=== PATIENT | male | born 1945 | race Caucasian/White ===

== ENCOUNTER → 2017-12-09 | Outpatient (CLI) | payer OTHER ==
[~2017-12-09] VITALS: Ht 182.9 cm; Wt 65.8 kg
[~2017-12-09] MED LIST: ALTACE5 MG PO; AMILORIDE HCL-1 EACH PO; ATENOLOL 25 MG25 M1 PO; BYDUREON P2 MG/0.65; CARAFATE 1 GM TA1 G1 PO; CARDIZEM CD 18180 M3 PO; GLUCOPHAGE1000 MG PO; KEFLEX500 MG PO; LANTUS100 UNIT/M SUBQ; LIPITOR 20 MG T20 M1 PO; NORCO 5-325 TA1 EACH PO; NOVOLOG100 UNIT/1 SUBQ; PROTONIX40 M1 PO; XARELTO20 MG PO; ZOCOR 20 MG TAB20 M1 PO
--- NOTE | ~2017-12-09 | EKG ---
[place] [address] [address] [facility] [place] [address] ELECTROCARDIOGRAM REPORT Name: NAI CLAY [facility]: [id number] Admission: 12/09/17 Attend Phys: Ashok Adkins MD, Discharge: Date of : 41 Report #: [id number] THIS REPORT FOR: //name// [facility] Test Date: 2017-12-09 Test Time: 07:50:07 Pat Name: NAI CLAY Department: Room: Gender: M Aromatherapist: GR : 1945 Requested By: Ashok Adkins Order Number: [id number] MD: Jaya Ruelas Measurements Intervals [place] Rate: 82 P: NV: QRS: 68 QRSD: 90 T: 45 QT: 369 QTc: 431 Interpretive Statements Atrial fibrillation Borderline low voltage, extremity leads Compared to ECG 11/03/2017 12:40:52 No significant changes Electronically Signed On 12-09-2017 7:56:10 CDT by Jaya Ruelas [email or web address] <ELECTRONICALLY SIGNED> By: Jaya Ruelas MD, [facility] 12/09/17 0756 0750 0750 Jaya Ruelas MD, FACC /EPI
--- NOTE | ~2017-12-09 | CATHLAB ---
[facility] [address] [place] [address] INVASIVE PROCEDURE REPORT Name: NAI CLAY Room #: REG [facility] [id number] Admission: 12/09/17 Attend Phys: Ashok Akdins, Discharge: Date of : 41 Date of Service: 12/10/17 0927 Report #: [id number] THIS REPORT FOR: //name// APPROVED REPORT Study performed: 12/09/2017 08:30:34 Patient Details Patient Status: Out-Patient Room #: The patient is a 71 year-old male Event Personnel Ashok Adkins Networking Administrator, Sima Hurd RN dredge or barge shore hand Performed Art Access - R femoral artery* Lane Access - R femoral vein 49671 Initial Mod Sed Same Phys/QHP Gr5y 739530 38599 Mod Sed Same Phys/QHP Ea 275780 Right and Left Heart Cath Lt Vent/Cors/Grafts 1838777 RLLVCORCAB Aortogram Abdominal Peripheral Angio 603646 Renal Bilateral Peripheral Angiography 8280941 CVRENALBIL Hemostasis w/ Mynx Indication Positive stress test Procedure Narrative The patient was brought electively to the Cardiac Catheterization Laboratory and was prepped and draped in a sterile manner. The Right Groin^ was infiltrated with 1% Lidocaine subcutaneous anesthesia. A Right Heart Catheterization was performed with a 7 Fr. Liberty-Yulia catheter and pressure were recorded. Cardiac outputs were obtained by the Thermal Dilution method. A PINNACLE 6FR Sheath #[id number] sheath was inserted into the RFA^. Coronary angiography was performed using coronary diagnostic catheters. The right coronary system was accessed and visualized with a JR 4 catheter. The left coronary system was accessed and visualized with a JL 4 catheter. The left ventricle was accessed and visualized with a Pigtail catheter. Left ventriculogram was performed in CAMACHO projection. An aortogram of the abdominal aorta was performed. Pre-demployment femoral angiogram was performed . Closure device was deployed with a 6 Fr Mynx. The patient tolerated the procedure well and there were no complications associated with the procedure. There was no hematoma. Intraoperative Conscious Sedation Sedation start time: 08:53 Case end Time: [address] [address] INVASIVE PROCEDURE REPORT Name: NAI CLAY Room #: REG Angelica#: [id number] Admission: 12/09/17 Attend Phys: Ashok Adkins, Discharge: Date of : 41 Date of Service: 12/10/17 0927 Report #: [id number] 09:25 Fluoro Time: 4.50 minutes Dose: DAP 4997.80 cGycm2 568 mGy Contrast Type and Amount: Omnipaque 120 ml Hemodynamics The right atrial mean pressure is 8 mmHg. The right ventricular pressure is 36/4 mmHg. The pulmonary artery pressure is 34/14 mmHg with a mean of 23 mmHg. The mean pulmonary capillary wedge pressure is 17 mmHg. The aortic pressure is 127/60 mmHg with a mean of 77 mmHg. The left ventricular pressure is 128/4 mmHg with a mean of mmHg. The left ventricular end diastolic pressure is 20 mmHg. The cardiac output using thermo method is 3.15 L/min. The cardiac index using thermo method is 1.70 L/min/m2. Conclusion #1 normal left ventricular size and systolic function EF 50-55% #2 abdominal aorta is mildly ectatic. There is no aneurysm there is a moderate narrowing in the infrarenal aorta not flow-limiting renal arteries are patent #3 left main and moderately diseased giving rise total no left coronary system LAD circumflex proximally occluded #4 CROUCH to LAD is intact CROUCH graft widely patent moderate disease in the LAD is extensive the apex with some faint collateral filling to the PDA mid LAD has an eccentric 70% lesion but the entire vessel is moderately diseased would treat this medically #5 lac courte oreilles right coronary artery occluded #6 SVG to diagonal and OM system is a new with mild disease relatively small distribution of the OM and diagonal branch also moderately diseased #7 SVG to distal right scalene disease PDA and SHIRA and there is a brisk collateral branch off of the posterior lateral branch that fills a moderate amount of the circumflex OM system briskly #8 selective injection bilateral single renal arteries mildly diseased ostial left and right #9 successful right heart catheterization hemodynamics described above Recommendations and plan: Continued aggressive risk factor modification. There is no clear target for intervention. Aggressive medical therapy <ELECTRONICALLY SIGNED> By: Ashok Adkins MD, FACC 12/10/17926 6 6 Ashok Adkins MD, FACC /INF
[2017-12-09 07:21] VITALS: BP 122/89
[2017-12-09 07:26] LABS: HEMOGLOBIN 14.3 gm/dL (14.0-18.0); MCH 32.2 pg (26.0-34.0); MCV 94.6 fL (80.0-100.0); RBC 4.44 mil/uL (4.50-6.00); RDW 13.1 % (10.5-14.5); WBC 7.6 thou/uL (4.0-11.0)
[2017-12-09 07:36] LABS: CALCIUM 9.3 mg/dL (8.5-10.1); CREATININE 1.2 mg/dL (0.7-1.3); POTASSIUM 3.5 mmol/L (3.5-5.1)
== END | disposition home or self-care (01) ==
LOC: CATH 06:43
PROVIDERS: Internal Medicine Cardiovascular Disease
DX: I25.10 Atherosclerotic heart disease of native coronary artery without angina pectoris (principal); I25.82 Chronic total occlusion of coronary artery; I77.811 Abdominal aortic ectasia; I70.1 Atherosclerosis of renal artery; I10 Essential (primary) hypertension; E78.5 Hyperlipidemia, unspecified; I25.2 Old myocardial infarction; I48.91 Unspecified atrial fibrillation; E11.9 Type 2 diabetes mellitus without complications; Z95.5 Presence of coronary angioplasty implant and graft; Z95.1 Presence of aortocoronary bypass graft; Z79.4 Long term (current) use of insulin; Z88.0 Allergy status to penicillin; Z88.2 Allergy status to sulfonamides; Z88.8 Allergy status to other drugs, medicaments and biological substances; Z79.899 Other long term (current) drug therapy; Z98.890 Other specified postprocedural states

== ENCOUNTER → 2019-10-18 | Outpatient (CLI) | payer OTHER | LOC: SJCVCIMAG 12:20 | DX: I08.3 Combined rheumatic disorders of mitral, aortic and tricuspid valves (principal); I25.10 Atherosclerotic heart disease of native coronary artery without angina pectoris; I48.92 Unspecified atrial flutter; E11.9 Type 2 diabetes mellitus without complications; I10 Essential (primary) hypertension ==

== ENCOUNTER → 2020-05-24 | Outpatient (CLI) | payer OTHER | LOC: SJCVC 14:01 | PROVIDERS: ATTEND Internal Medicine Cardiovascular Disease | DX: I48.91 Unspecified atrial fibrillation (principal); R94.31 Abnormal electrocardiogram [ECG] [EKG]; I25.810 Atherosclerosis of coronary artery bypass graft(s) without angina pectoris; I10 Essential (primary) hypertension; E78.00 Pure hypercholesterolemia, unspecified; D68.59 Other primary thrombophilia; E11.9 Type 2 diabetes mellitus without complications; Z95.1 Presence of aortocoronary bypass graft ==

== ENCOUNTER 2020-10-12 17:28 | Inpatient (IN) | payer OTHER ==
[2020-10-12] VITALS (7 sets, daily range): BP systolic 67–88; BP diastolic 37–41
[~2020-10-12] VITALS: Ht 182.9 cm; Wt 74.4 kg
[2020-10-12 18:24] LABS: HEMATOCRIT 36.7 % (42.0-52.0); HEMOGLOBIN 12.3 gm/dL (14.0-18.0); MCH 32.9 pg (26.0-34.0); MCHC 33.7 g/dL (28.0-37.0); MCV 97.5 fL (80.0-100.0); RBC 3.76 mil/uL (4.50-6.00); RDW 12.9 % (10.5-14.5)
[2020-10-12 18:29] LABS: URINE BLOOD TRACE (Negative); URINE CLARITY CLEAR; URINE COLOR YELLOW; URINE GLUCOSE-RANDOM* NEGATIVE (Negative); URINE KETONES TRACE (Negative); URINE LEUKOCYTES-REFLEX NEGATIVE (Negative); URINE NITRITE-REFLEX NEGATIVE (Negative); URINE PROTEIN (DIPSTICK) TRACE (Negative); URINE SPECIFIC GRAVITY >= 1.030 (1.005-1.035); URINE UROBILINOGEN 0.2 E.U./dl (0.2-1.0)
[2020-10-12 18:30] LABS: ANION GAP 13 mmol/L (7-16); BUN 64 mg/dL (7-18); CALCIUM 8.2 mg/dL (8.5-10.1); CHLORIDE 96 mmol/L (98-107); CO2 22 mmol/L (21-32); CREATININE 3.5 mg/dL (0.7-1.3); GLUCOSE 263 mg/dL (74-106); POTASSIUM 4.4 mmol/L (3.5-5.1); SODIUM 131 mmol/L (136-145)
[2020-10-12 18:32] LABS: ICTOTEST (BILI CONFIRMATORY) Negative (Negative); URINE BILIRUBIN NEGATIVE (Negative)
[2020-10-12 18:40] LABS: APTT 30.3 Seconds (24.5-32.8); INR 1.17; PROTIME 12.7 Seconds (9.3-11.4)
[2020-10-12 18:45] LABS: ALBUMIN 3.2 g/dL (3.4-5.0); LIPASE 59 U/L (73-393); SGOT 20 U/L (15-37); SGPT 24 U/L (16-63); TOTAL BILIRUBIN 0.5 mg/dL (0.2-1.0); TOTAL PROTEIN 6.9 g/dL (6.4-8.2); TROPONIN-I <0.06 ng/mL (<0.06)
[2020-10-12 19:12] LABS: ABSOLUTE NEUTROPHILS 8.7 thou/uL (1.4-8.2); LARGE PLATELETS RARE; METAMYELOCYTES 1 %; PLATELET COUNT 200 thou/uL (150-400)
[2020-10-12] MEDS ORDERED: FUROSEMIDE 20 M20 MG PO (20:28)
[2020-10-12] MEDS ORDERED: NAPROSYN500 M1 PO (20:28)
[2020-10-12] MEDS ORDERED: CELEXA20 MG PO (20:29)
[2020-10-12] MEDS ORDERED: HUMALOG100 UNIT/1 SUBQ (20:29)
[2020-10-12] MEDS ORDERED: BASAGLAR K100 UNIT/1 SUBQ (20:39)
[2020-10-12] MEDS ORDERED: MIDAMOR 5MG TABL5 M1 PO (20:39)
[2020-10-12] MEDS ORDERED: NEURONTIN100 MG PO (20:40)
[2020-10-12] MEDS ORDERED: SILDENAFIL CIT100 MG PO (20:41)
[2020-10-12 23:02] LABS: CALCIUM 7.2 mg/dL (8.5-10.1); POTASSIUM 4.2 mmol/L (3.5-5.1)
--- NOTE | 2020-10-12 23:17 | NUR ---
PATIENT ARRIVED FROM ER TO 244 AT APPROX 2220. PATIENT MOVED FROM ER BED TO ICU BED INDEPENDENTLY. PATIENT PLACED ON MONITOR. VSS ON RA AT THIS TIME. PATIENT IS A&OX4 WITH NO COMPLAINTS OF PAIN, NAUSEA, OR VOMITING. Erika LAIRD NP CALLED AND INSRUCTED THIS RN TO DECREASE NS INFUSION TO 80/HR AND TO STOP FLUIDS AFTER CURRENT LITER BAG IS COMPLETE. FLUIDS DECREASED TO 80ML/HR. PATIENT REQUIRED LEVOPHED INFUSION TO BE STARTED AT 2300 WITH PRESSURE OF 67/37. ALL CURRENT CONSULTS HAVE BEEN CALLED AT TIME OF THIS WRITING ROUTINE STATUS PER ORDER. PATIENTS BELONGINGS INCLUDE SWEATSHIRT, SWEATPANTS, BOXERS, SOCKS, AND UNDERWARE. PATIENT ENDORSES THAT ALL OTHE BELONGINGS WERE SENT HOME WITH HIS SPOUSE. WILL CONTINUE POC.
[2020-10-13] VITALS (66 sets, daily range): BP systolic 72–169; BP diastolic 36–109
[2020-10-13 05:11] LABS: HEMATOCRIT 33.4 % (42.0-52.0); HEMOGLOBIN 11.2 gm/dL (14.0-18.0); MCH 32.5 pg (26.0-34.0); MCHC 33.5 g/dL (28.0-37.0); MCV 97.2 fL (80.0-100.0); PLATELET COUNT 155 thou/uL (150-400); RBC 3.43 mil/uL (4.50-6.00); WBC 13.8 thou/uL (4.0-11.0)
[2020-10-13 07:49] LABS: ALBUMIN 2.6 g/dL (3.4-5.0); CALCIUM 7.2 mg/dL (8.5-10.1); CREATININE 2.9 mg/dL (0.7-1.3); POTASSIUM 4.7 mmol/L (3.5-5.1); TOTAL BILIRUBIN 1.1 mg/dL (0.2-1.0); TOTAL PROTEIN 5.6 g/dL (6.4-8.2)
[2020-10-13 09:39] LABS: HEMOGLOBIN 12.2 gm/dL (14.0-18.0)
[2020-10-13 09:51] LABS: ABSOLUTE NEUTROPHILS 11.7 thou/uL (1.4-8.2); METAMYELOCYTES 3 %
[2020-10-13 09:52] LABS: ANISOCYTOSIS SLIGHT; BURR CELLS FEW
[2020-10-13 09:53] LABS: ANION GAP 16 mmol/L (7-16); BUN 63 mg/dL (7-18); CALCIUM 7.4 mg/dL (8.5-10.1); CHLORIDE 100 mmol/L (98-107); CO2 15 mmol/L (21-32); CREATININE 2.8 mg/dL (0.7-1.3); GLUCOSE 337 mg/dL (74-106); POTASSIUM 4.8 mmol/L (3.5-5.1); SODIUM 131 mmol/L (136-145)
[2020-10-13 09:56] LABS: MAGNESIUM 1.2 mg/dL (1.8-2.4); PHOSPHORUS 3.6 mg/dL (2.6-4.7)
--- NOTE | 2020-10-13 11:30 | NUR ---
6FRTL IJ PLACED RT SIDE. PLEASE SEE NI FOR DETAILS
[2020-10-13 18:33] LABS: ALBUMIN 2.6 g/dL (3.4-5.0); CREATININE 2.9 mg/dL (0.7-1.3); PHOSPHORUS 3.7 mg/dL (2.6-4.7)
[2020-10-13 18:37] LABS: POTASSIUM 5.2 mmol/L (3.5-5.1)
[2020-10-13 20:48] LABS: ALBUMIN 2.8 g/dL (3.4-5.0); CALCIUM 7.3 mg/dL (8.5-10.1); MAGNESIUM 1.9 mg/dL (1.8-2.4); PHOSPHORUS 2.7 mg/dL (2.6-4.7)
[2020-10-13 20:50] LABS: POTASSIUM 3.3 mmol/L (3.5-5.1)
[2020-10-13 20:58] LABS: URINE BILIRUBIN NEGATIVE (Negative); URINE BLOOD 1+ (Negative); URINE CLARITY CLEAR; URINE COLOR YELLOW; URINE GLUCOSE-RANDOM* 1+ (Negative); URINE KETONES NEGATIVE (Negative); URINE LEUKOCYTES-REFLEX NEGATIVE (Negative); URINE NITRITE-REFLEX NEGATIVE (Negative); URINE PROTEIN (DIPSTICK) NEGATIVE (Negative); URINE UROBILINOGEN 0.2 E.U./dl (0.2-1.0)
[2020-10-13 21:18] LABS: BACTERIA-REFLEX None Seen /HPF (None Seen); CASTS None Seen /LPF (None Seen); CRYSTALS None Seen /LPF (None Seen); RENAL EPITHELIAL CELLS 0-3 Few /LPF (None Seen); SQUAMOUS 0-3 Few /LPF (0-3); URINE WBC-REFLEX 0-5 Rare /HPF (0-5)
--- NOTE | 2020-10-13 22:48 | NUR ---
Pt called me into room. Thought there was wax or water running down the wall onto the floor in his room, also thought water out in hallway by room. Pt very adamant about this though I showed him nothing was on the floor or lopez.
[2020-10-14] VITALS (34 sets, daily range): BP systolic 93–131; BP diastolic 52–81
--- NOTE | 2020-10-14 00:21 | NUR ---
At 2300 pt became severely aggitated, thought floor was on fire, pulled out RIJ central line. Pt became very angry, verbally aggressive when reality orientation attempted. Bleeding from RIJ site stopped. Erika Mueller NP notified of pt's aggitation and hallucinations. According to charge nurse, Chelsea Lanza RN, pt had hallucinations the night of 10/12, but they were not as frightening or severe. Pt given Haldol 2.5 mg IVP per order, two peripheral sites started per Chelsea Lanza RN. Pt now resting comfortably in bed, alert and oriented x4 after Haldol.
--- NOTE | 2020-10-14 03:29 | NUR ---
Pt intermittently confused, restless, argumentative at times. Non-cooperative at times. Keeps taking monitor wires apart, attempts OOB without assist. Up to BSC with assist x1, less shakey but still unsteady gait. Still having lose stools. Blood glucose well controlled with insulin gtt.
[2020-10-14 04:08] LABS: HEMOGLOBIN 12.2 gm/dL (14.0-18.0)
[2020-10-14 04:10] LABS: HEMATOCRIT 36.1 % (42.0-52.0); MCH 32.2 pg (26.0-34.0); MCHC 33.8 g/dL (28.0-37.0); MCV 95.5 fL (80.0-100.0); PLATELET COUNT 190 thou/uL (150-400); RBC 3.78 mil/uL (4.50-6.00); RDW 13.2 % (10.5-14.5); WBC 18.1 thou/uL (4.0-11.0)
[2020-10-14 04:31] LABS: ALBUMIN 2.7 g/dL (3.4-5.0); CALCIUM 7.5 mg/dL (8.5-10.1); CREATININE 1.8 mg/dL (0.7-1.3); PHOSPHORUS 2.5 mg/dL (2.5-4.9); POTASSIUM 3.3 mmol/L (3.5-5.1)
--- NOTE | 2020-10-14 04:58 | HC ---
[facility] [place] [address] CONSULTATION Name: NAI CLAY NILSON Room #: 244-P ADM IN M.R.#: [id number] Admission: 10/12/20 Attend Phys: Mariam Camejo Discharge: Date of : 41 Report #: [id number] THIS REPORT FOR: cc: Albert Canada,Dequan Moss MD ~ DATE OF SERVICE: 10/13/2020 INFECTIOUS DISEASE CONSULTATION ATTENDING PHYSICIAN: Dr. Camejo. REASON FOR EVALUATION: Septic shock. HISTORY OF PRESENT ILLNESS: Chart reviewed, patient examined. This is a 74-year-old gentleman with very extensive medical history, has diabetes mellitus complicated by vasculopathy, who has had significant deterioration over the course of the last week, although he states in retrospect, illness may have started upwards of a year ago, primarily GI related. Most recently, he had nausea, vomiting, and diarrhea. This had been associated with poor appetite. He does deny significant weight loss, has had some fevers and some mild dyspnea with exertion. He notes he is retired. Initial evaluation noted lactic acid elevated to 2.4. He did have a creatinine of 3.5, glucose of 263 on admission. Albumin was 3.2. CT abdomen and pelvis shows sigmoid diverticulosis without diverticulitis. Absent gallbladder. CRP was elevated to 172. Coronavirus testing was negative. Blood cultures have been collected and are in progress. He was empirically started on therapy with cefepime, Levaquin, vancomycin. He is lucid at this point. ALLERGIES: LISTED TO PENICILLINS AND SULFA. MEDICINES: Currently include vancomycin, atorvastatin, cefepime, insulin glargine, rivaroxaban, norepinephrine, hydrocortisone, vasopressin. PAST MEDICAL HISTORY: Diabetes mellitus diagnosed 25 years ago, has known coronary artery disease with aortocoronary bypass grafting, hypertension, atrial fibrillation, hyperlipidemia. SOCIAL HISTORY: Former smoker. No ethanol. No illicit drug use. FAMILY HISTORY: Noncontributory. REVIEW OF SYSTEMS: Otherwise noted the above. PHYSICAL EXAMINATION: [facility] [address] [place] [address] CONSULTATION Name: NAI CLAY Room #: 244-P [facility] IN M.R.#: [id number] Admission: 10/12/20 Attend Phys: Mariam Casas Yamilkavivian Discharge: Date of : 41 Report #: [id number] GENERAL: Appears somewhat chronically ill. He is generally lucid, nlfm-ol-lzkmivxg distress. VITAL SIGNS: T-max 99.9 and more recently 98.2, blood pressure 74/36, saturation 98% on room air. HEENT: Normocephalic. Extraocular muscles intact. NECK: Supple. LUNGS: Diminished breath sounds. HEART: ____. I do not appreciate murmur. ABDOMEN: Soft, nontender, nondistended. EXTREMITIES: No cyanosis. GENITOURINARY AND RECTAL: Deferred. LABORATORY DATA: Lactic acid now at 2.0. CBC: White count of 13.8, H and H 11.2 and 33.4, platelets of 155. Coronavirus testing was negative. Sed rate of 17. CRP of ____. Electrolytes: Sodium 132, potassium 4.2, chloride 100, bicarbonate is 18, anion gap of 14, BUN and creatinine [address] abdomen and pelvis as described above. Chest x-ray, no acute process. Urinalysis was otherwise unremarkable. ASSESSMENT AND PLAN: Septic shock, presumably a gastrointestinal source. Other evaluation has been otherwise unrevealing thus far. We will send stool studies. CT, there was no evidence of diverticulitis or colitis. Await blood culture results. I would continue broad-spectrum antimicrobial therapy at this point. Seemingly, this has been going on a number of months to a year, likely has some underlying issue, perhaps noninfectious with more recent deterioration, likely is infectious. He remains quite tenuous at this point. We will continue to monitor expectantly, do additional testing as dictated by the clinical course. <ELECTRONICALLY SIGNED> By: Dequan Castrejon MD 10/14/20 0458 0644 0738 Dequan Castrejon MD /nt
[2020-10-14 05:36] LABS: GLYCOHEMOGLOBIN (HGB A1C) 7.8 % (4.8-5.6)
--- NOTE | 2020-10-14 08:06 | NUR ---
ASSUMED CARE AT 0700. UPON ASSESSMENT IT IS NOTED BY RN THAT PT IS STILL EXPERIENCING VISUAL HALLICUNATIONS. PT STATES HE IS AT HOME AND IS WATCHING ALL THE COWS ON THIS HILL. RN ATTEMPT TO REORIENT PT IS UNSUCCESSFUL AT THIS TIME. PT CONTINUES TO PULL AT LINES AND CORDS. PT WAS ABLE TO TELL ME HIS 'S NAME, PAST OCCUAPATION AND GAVE THE NAME OF A GRANDCHILD WHO COLORED A PAPER IN HIS ROOM. HE THEN PROCEEDED TO TELL RN THAT HE IS AT HOME. WILL CONTINUE TO CLOSELY MONITOR PT.
--- NOTE | 2020-10-14 09:24 | NUR ---
RN SPOKE WITH PT'S SON NAI TORRES" ON PHONE AND GAVE PT UPDATE. AN ASKED IF RN WOULD TELL PT HE LOVED HIM AND HIS LESTER LOVES HIM. RN TOLD PATIENT THAT AN AND LESTER CALLED AND THAT THEY LOVE HIM. PT SMILED.
--- NOTE | 2020-10-14 09:32 | NUR ---
RN SPOKE WITH PT'S SHOSHANA ON THE PHONE AND GAVE PT UPDATE. SHOSHANA STATES SHE WILL BE UP SOON TO VISIT WITH PT.
--- NOTE | 2020-10-14 11:03 | EKG ---
[address] [place] [address] ELECTROCARDIOGRAM REPORT Name: NAI CLAY Room #: 244-P ADM IN M.R.#: [id number] Admission: 10/12/20 Attend Phys: Mariam Camejo Discharge: Date of : 41 Report #: [id number] [facility] ED Test Date: 2020-10-12 Test Time: 18:01:53 Pat Name: NAI CLAY Department: Room: 244 Gender: M Instrument Man: LINA : 1945 Requested By: Pankaj Peoples Order Number: [id number] MD: Julito Llamas Measurements Intervals [place] Rate: 62 P: SD: QRS: 47 QRSD: 86 T: 69 QT: 388 QTc: 394 Interpretive Statements Atrial fibrillation Low voltage, extremity leads Compared to ECG 12/09/2017 07:50:07 No significant changes Electronically Signed On 10-14-2020 11:03:01 CDT by Julito Llamas [email or web address] <ELECTRONICALLY SIGNED> By: Julito Llamas MD 10/14/20 1103 180 1801 MD MINERVA Barlow
[2020-10-14 11:20] LABS: ATYPICAL LYMPHS 1 %
[2020-10-14 11:21] LABS: MYELOCYTES 1 %
[2020-10-14 11:22] LABS: ABSOLUTE NEUTROPHILS 12.7 thou/uL (1.4-8.2); METAMYELOCYTES 1 %
[2020-10-14 11:23] LABS: ANISOCYTOSIS 1+; BURR CELLS 2+; TOXIC GRANULATION 1+
--- NOTE | 2020-10-14 15:42 | NUR ---
VASCULAR ACCESS NOTIFIED THAT PATIENT PULLED OUT THE CENTRAL LINE LAST PM. REQUESTING A PICC. RENAL SIGNED OFF AND AMARA/CKD2 IMPROVING. CONSENT NOTED. A #5F TRIPLE LUMEN POWER PICC WAS PLACED PER HOSPITAL POLICY AFTER A BEDSIDE TIMEOUT WAS COMPLETED. THE LINE WAS TRIMMED TO 45CM AND ADVANCED WITHOUT DIFFICULTY. THE LINE WAS CONFIRMED USING 3CG AND RELEASED FOR USE
--- NOTE | 2020-10-14 18:15 | NUR ---
PT ARRIVED AROUND 1600 AND SAT BEDSIDE WITH PT UNTIL 1730. PT BECAME MORE AND MORE CONFUSED AND AGITATED WHILE WAS HERE. 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 PT THEN BEGAN CALLING THIS RN BY THE NAME OF HIS DAUGHTER IN LAW. PT WAS REDIERECTABLE AND PLEASANTLY CONFUSED THIS AM BUT IS GETTING MORE AND MORE AGITATED THE SHIFT PROGRESSES. PT TOLD SHE DOES NOT WANT TO MAKE HIM ANGRY. PT'S DECIDED IT WAS TIME FOR HER TO LEAVE AND GO HOME FOR THE EVENING. SOON PT'S LEFT, PT BECAME THE MOST AGITATED HE HAS BEEN THIS SHIFT. PT WAS TRYING TO PULL OUT PUENTE CATHETER AND WAS PULLING ON BLOOD PRESSURE CORD WELL EKG CORDS. PT BEGAN YELLING AT NURSE TRYING TO STAND UP AND TELLING HER SHE BETTER GET OUT OF HIS WAY BECAUSE HE WAS LEAVING. RN CALLED FOR HELP OF ANOTHER RN WHO WAS ABLE TO CALL THE HOSPITALIST FOR THIS RN. NEW ORDERS RECEIVED FOR IM OLANZAPINE AND BILATERAL SOFT WRIST RESTRAINTS. PT WAS WALKED TO ROOM [facility] WITH ONE ASSIST. ONCE HE WAS SEATED ON [facility] PT BEGAN TRYING TO PULL AT HIS CATHETER. RN WALKED PT BACK TO BED, PLACED BED ALARM ON AND HAD ANOTHER RN WATCH PT WHILE SHE RETRIEVED MEDICATION ORDERED FROM [facility]. RN GAVE IM INJECTION IN R DELTOID
--- NOTE | 2020-10-14 19:39 | NUR ---
1800 ORAL VANCOMYCIN DOES NOT AVAILABLE IN PT [place] AT TIME OF SHIFT CHANGE. PHARMACY MADE AWARE THAT DOSE NOT AVAILABLE AND CHIPPER FEEDER RN MADE AWARE THAT PATIENT STILL NEEDS 1800 DOSE.
[2020-10-14 23:40] LABS: CALCIUM 7.5 mg/dL (8.5-10.1); CREATININE 1.3 mg/dL (0.7-1.3)
[2020-10-14 23:42] LABS: POTASSIUM 2.7 mmol/L (3.5-5.1)
[2020-10-15] VITALS (37 sets, daily range): BP systolic 79–136; BP diastolic 44–87
[2020-10-15 01:31] LABS: MAGNESIUM 1.9 mg/dL (1.8-2.4); PHOSPHORUS 1.7 mg/dL (2.6-4.7)
[2020-10-15 06:39] LABS: HEMOGLOBIN 11.9 gm/dL (14.0-18.0)
[2020-10-15 06:40] LABS: HEMATOCRIT 34.9 % (42.0-52.0); MCH 32.7 pg (26.0-34.0); MCHC 34.2 g/dL (28.0-37.0); MCV 95.5 fL (80.0-100.0); PLATELET COUNT 173 thou/uL (150-400); RBC 3.65 mil/uL (4.50-6.00); RDW 13.4 % (10.5-14.5)
[2020-10-15 06:56] LABS: CALCIUM 7.6 mg/dL (8.5-10.1); CREATININE 1.1 mg/dL (0.7-1.3); MAGNESIUM 2.4 mg/dL (1.8-2.4); PHOSPHORUS 1.7 mg/dL (2.6-4.7); POTASSIUM 3.1 mmol/L (3.5-5.1)
--- NOTE | 2020-10-15 07:33 | NUR ---
ASSUMMED CARE ON THIS PATIENT FROM CÉSAR RICHARDS. POTASSIUM INFUSING FOR SERUM POTASSIUM OF 3.1. ORIENTED TO PERSON ONLY AWAKEN FROM SLEEP. NON ESSENTIAL TREMORS NOTED WHEN MOVING AROUND. SETTING UP FOR BEDSIDE ECHO.
--- NOTE | 2020-10-15 08:25 | NUR ---
SPOKE WITH PATIENT'S AND UPDATED HER IN REGARDS TO HER 'S CONDITION. PATIENT IS MORE ALERT AND ORIENTED.
--- NOTE | 2020-10-15 08:30 | 2DMMODE ---
[facility] [place] [address] 2 D/M-MODE ECHOCARDIOGRAM Name: NAI CLAY NILSON Room #: 244-P ADM IN M.R.#: [id number] Admission: 10/12/20 Attend Phys: Mariam Camejo Discharge: Date of : 41 Report #: [id number] THIS REPORT FOR: cc: Albert Canada,Dez Stout MD [facility] ~ APPROVED REPORT Study performed: 10/15/2020 07:37:08 EXAM: Comprehensive 2D, Doppler, and color-flow Echocardiogram Patient Location: ICU Room #: 244 Status: routine BSA: 1.94 HR: 88 bpm BP: 115/76 mmHg Rhythm: NSR Other Information Study Quality: Adequate Indications Elevated BNP, weakness, dyspnea, sepsis. Hx: CABG, stents, Afib, HTN, DM. 2D Dimensions RVDd: 39.92 mm IVSd: 9.75 (7-11mm) LVOT Diam: 21.15 (18-24mm) LVDd: 46.65 mm PWd: 9.93 (7-11mm) Ascending Ao: 34.24 (22-36mm) LVDs: 32.25 (25-40mm) Aortic Root: 37.77 mm Volumes Left Atrial Volume (Systole) Single Plane 4CH: 66.15 mL Single Plane 2CH: 65.17 mL LA ESV Index: 35.00 mL/m2 Aortic Valve AoV Peak Lupillo.: 1.37 m/s AO Peak Gr.: 7.56 mmHg LVOT Max P.10 mmHg LVOT Max V: 0.88 m/s JONA Vmax: 2.25 cm2 [facility] [address] [place] [address] 2 D/M-MODE ECHOCARDIOGRAM Name: NAI CLAY Room #: 244-P [facility] IN [facility].#: [id number] Admission: 10/12/20 Attend Phys: Mariam Casas [facility] Discharge: Date of : 41 Report #: [id number] Mitral Valve MV Decel. Time: 159.76 ms MV E Max Lupillo.: 1.08 m/s Pulmonary Valve PV Peak Lupillo.: 0.90 m/s PV Peak Gr.: 3.21 mmHg Tricuspid Valve TR Peak Lupillo.: 2.80 m/s RAP Estimate: 5.00 mmHg TR Peak Gr.: 30.00 mmHg PA Pressure: 35.00 mmHg Left Ventricle The left ventricle is normal size. There is normal LV segmental wall motion. There is normal left ventricular wall thickness. Left ventricular systolic function is normal. LVEF is 55-60%. This study is not technically sufficient to allow evaluation of the LV diastolic function due to atrial fibrillation. Right Ventricle The right ventricle is normal size. The right ventricular systolic function is normal. Atria Left atrium is mildly dilated. Right atrium is at the upper limits of normal. Aortic Valve The aortic valve is normal in structure; mildly calcified. Trace aortic regurgitation. There is no aortic valvular stenosis. Mitral Valve Mitral valve leaflets are mildly thickened and calcified. Mild mitral regurgitation. No evidence of mitral valve stenosis. Tricuspid Valve The tricuspid valve is normal in structure. Moderate tricuspid regurgitation. Estimated PAP is 35mmHg. Pulmonic Valve The pulmonary valve is normal in structure. Mild pulmonic regurgitation. Great Vessels Aortic root is borderline dilated. The ascending aorta is normal in [facility] [address] [place] [address] 2 D/M-MODE ECHOCARDIOGRAM Name: NAI CLAY Room #: 244-P ADM IN M.R.#: [id number] Admission: 10/12/20 Attend Phys: Mariam Prather Discharge: Date of : 41 Report #: [id number] size. IVC is normal in size and collapses >50% with inspiration. Pericardium There is no pericardial effusion. <Conclusion> Study performed in atrial fibrillation Normal left ventricular size/wall thickness Ejection fraction 55-60% Normal right ventricular size/function Left atrium mildly dilated Color-flow Doppler study was performed of the aortic/mitral/tricuspid/pulmonary valve Normal aortic valve structure and function Mild mitral valve insufficiency Moderate tricuspid valve insufficiency Pulmonary systolic pressure estimated 35 mmHg Normal aortic root size No pericardial effusion <ELECTRONICALLY SIGNED> By: Dez Akins MD, [facility] 10/15/2029 8 8 Dez Akins MD, FACC /INF
[2020-10-15 08:38] LABS: ABSOLUTE NEUTROPHILS 14.1 thou/uL (1.4-8.2); ANISOCYTOSIS 1+; METAMYELOCYTES 2 %; MYELOCYTES 1 %
[2020-10-15 08:39] LABS: OVALOCYTES FEW
--- NOTE | 2020-10-15 12:00 | NUR ---
PATIENT SITTING IN THE CHAIR. CALM AND ORIENTED . KCL INFUSING.
--- NOTE | 2020-10-15 13:39 | NUR ---
chart review. discussed during am unite rounds. unable to visit with harish mcfadden on isolation and conserve on ppe. cm visited with nina via phone call, intro to dcp, and transition of care, ie hh or rehab if needed. she report he never had this be before, he has been on some abx for teeth work he was going to have. no medical dme. 1 step into home and no stairs inside he has to do. independent, still drives, manage own medication"/nina. no hh or rehab in past. pcp dr martinez. will cont following as needed for dc needs.
--- NOTE | 2020-10-15 13:45 | NUR ---
CALLED IN AND UPDATED ON PATIENT'S STATUS.
--- NOTE | 2020-10-15 19:59 | NUR ---
PATIENT IS PROGRESSING TOWARDS OUTCOME GOALS HE CALLED HIS . ABLE TO STAND, STATES THAT HE FEELS HIS BALANCE IS BETTER TODAY. POTASSIUM REPLACED PER PROTOCOL.
[2020-10-16] VITALS (22 sets, daily range): BP systolic 83–146; BP diastolic 46–113
[2020-10-16 04:19] LABS: HEMOGLOBIN 11.6 gm/dL (14.0-18.0); MCH 32.4 pg (26.0-34.0); MCHC 34.1 g/dL (28.0-37.0); MCV 95.1 fL (80.0-100.0); RBC 3.58 mil/uL (4.50-6.00); RDW 13.3 % (10.5-14.5); WBC 14.5 thou/uL (4.0-11.0)
[2020-10-16 05:09] LABS: CALCIUM 7.4 mg/dL (8.5-10.1); MAGNESIUM 1.9 mg/dL (1.8-2.4)
[2020-10-16 05:29] LABS: POTASSIUM 2.8 mmol/L (3.5-5.1)
--- NOTE | 2020-10-16 18:14 | NUR ---
SPOKE W/DR JAVIER TODAY REGARDING IMPROVEMENT OF PT MENTAL STATUS AND NEED FOR MRI. HE AGREED MRI COULD WAIT IF NEUROLOGY ON BOARD WITH DECISION. AWAITING NEURO DECISION. PUENTE REMOVED. UP TO CHAIR W/O DIFFICULTY TODAY. NEURO X4. PT STATED HE FELT, "ODD LAST FEW DAYS BUT MUCH BETTER TODAY THANOVER THE WEEKEND." 1 LOSE BM IN AM. NO PRESSOR SUPPORT NEEDED. PROGRESSING IN PLAN OF CARE.
[2020-10-17] VITALS (15 sets, daily range): BP systolic 97–138; BP diastolic 56–105
[2020-10-17 05:33] LABS: HEMATOCRIT 32.6 % (42.0-52.0); HEMOGLOBIN 11.2 gm/dL (14.0-18.0); MCH 32.5 pg (26.0-34.0); MCHC 34.3 g/dL (28.0-37.0); MCV 94.9 fL (80.0-100.0); RBC 3.44 mil/uL (4.50-6.00); WBC 14.5 thou/uL (4.0-11.0)
[2020-10-17 05:54] LABS: CALCIUM 7.6 mg/dL (8.5-10.1); MAGNESIUM 1.6 mg/dL (1.8-2.4); POTASSIUM 3.1 mmol/L (3.5-5.1)
--- NOTE | 2020-10-17 16:42 | NUR ---
VAT CALLED TO SEE PT, PICC LINE PULLED OUT TO 2OCM, STILL INTACT WITH EXCELLENT BR. SCRUBBED WITH CHG, REDRESSED,LABELED MIDLINE. CHANCE RN NOTIFIED IT IS NOW MIDLINE, ALL MEDS MUST BE COMPATABLE
--- NOTE | 2020-10-17 18:08 | NUR ---
PT ANSWERING ORIENTATION QUESTIONS APPROPRIATLEY IN AM. 2 LOOSE BM'S TODAY. SEEN BY PT TODAY... AMBULATED IN ROOM W/O ASSIST. PICC LINE UNINTENTIONALLY RETRACTED. CAN STILL USE BUT NOW IS CONSIDERED MID LINE IN RIGHT UPPER ARM. CONTINUING TO REPLACE K AND MAG. MRI HAD TO BE PUSHED TO TOMORROW DUE TO OUTPT NEED PER PHOTOGRAPHY COLORIST. OVERALL PT PROGRESSING IN PLAN OF CARE.
[2020-10-17 21:19] LABS: MAGNESIUM 1.9 mg/dL (1.8-2.4); POTASSIUM 3.6 mmol/L (3.5-5.1)
[2020-10-18] VITALS (8 sets, daily range): BP systolic 107–147; BP diastolic 62–83
[2020-10-18 05:17] LABS: HEMOGLOBIN 12.2 gm/dL (14.0-18.0); MCH 32.1 pg (26.0-34.0); MCHC 33.8 g/dL (28.0-37.0); RBC 3.79 mil/uL (4.50-6.00); RDW 13.3 % (10.5-14.5); WBC 20.7 thou/uL (4.0-11.0)
[2020-10-18 05:40] LABS: MAGNESIUM 1.6 mg/dL (1.8-2.4); POTASSIUM 3.6 mmol/L (3.5-5.1)
--- NOTE | 2020-10-18 07:08 | NUR ---
ASSUMMED CARE OF THIS PATIENT FROM THE NIGHT NURSE, EMORY RICHARDS.
--- NOTE | 2020-10-18 10:49 | NUR ---
0920 TO MRI VIA W/C 1000 RETURNED TO ROOM
--- NOTE | 2020-10-18 14:47 | NUR ---
TO CT SCAN VIA W/C.
--- NOTE | 2020-10-18 19:14 | NUR ---
PATIENT IS PROGRESSING TOWARDS OUTCOME GOALS, HE IS AMBULATING IN THE HALLS WITH ASSISTANCE. ORIENTED TO PERSON, YEAR AND TYPE OF PLACE BUT DIFFICULTY RECALLING OTHER THINGS. UP IN THE CHAIR TODAY. MONITOR STABLE. UA SENT TO LAB.
[2020-10-18 19:24] LABS: URINE BILIRUBIN NEGATIVE (Negative); URINE BLOOD NEGATIVE (Negative); URINE CLARITY CLEAR; URINE COLOR YELLOW; URINE GLUCOSE-RANDOM* 3+ (Negative); URINE KETONES NEGATIVE (Negative); URINE LEUKOCYTES-REFLEX NEGATIVE (Negative); URINE NITRITE-REFLEX NEGATIVE (Negative); URINE PROTEIN (DIPSTICK) NEGATIVE (Negative); URINE UROBILINOGEN 0.2 E.U./dl (0.2-1.0)
[2020-10-19 03:06] VITALS: BP 128/76
[2020-10-19 05:11] LABS: HEMATOCRIT 33.4 % (42.0-52.0); HEMOGLOBIN 11.4 gm/dL (14.0-18.0); MCH 32.2 pg (26.0-34.0); MCV 94.6 fL (80.0-100.0); RBC 3.53 mil/uL (4.50-6.00); RDW 13.4 % (10.5-14.5); WBC 18.4 thou/uL (4.0-11.0)
[2020-10-19 05:18] LABS: CALCIUM 7.9 mg/dL (8.5-10.1); CREATININE 1.1 mg/dL (0.7-1.3); MAGNESIUM 1.5 mg/dL (1.8-2.4); POTASSIUM 3.5 mmol/L (3.5-5.1)
[2020-10-19 08:00] VITALS: BP 126/93
--- NOTE | 2020-10-19 11:02 | HC ---
[facility] [place] [address] CONSULTATION Name: NAI CLAY Room #: 244-P [facility] IN M.R.#: [id number] Admission: 10/12/20 Attend Phys: Mariam Camejo Discharge: Date of : 41 Report #: [id number] THIS REPORT FOR: cc: Albert Canada Steven F. DO [place], Roxane S. DO ~ NEUROLOGY CONSULT HISTORY OF PRESENT ILLNESS: The patient is a 74-year-old male who we have been asked to see in neurological consultation for double vision. Apparently, the patient had an episode of double vision yesterday. When that occurred, a CT scan of the head was done and this was unremarkable. Speaking to the patient today, he tells me the double vision has been going on for 2 weeks. It was going on when he was at home. For example, it might come on when he watches television or if he looks off to the right, he may see two clocks. However, he also states there is nothing he can do to bring it on and to his knowledge, it does not come on at any particular time of day. He was unable to tell me how long it lasts. He denies any difficulty speaking, swallowing or chewing. He denies any weakness of the extremities, particularly any weakness of the hips or the shoulders. He tells me today he has not had any double vision at all. PAST MEDICAL HISTORY: Coronary artery disease, hypertension, hyperlipidemia, type 2 diabetes, nephrolithiasis, atrial fibrillation. PAST SURGICAL HISTORY: Cardiac stent, coronary artery bypass graft, lithotripsy. CURRENT MEDICATIONS: Atorvastatin 20 mg at bedtime, Maxipime 2 grams at bedtime, famotidine 20 mg at bedtime, hydrocortisone 100 mg IV q. 6 hours, Lantus insulin, Humalog insulin sliding scale, metoclopramide 5 mg IV q.i.d., metronidazole 500 mg q. 8 hours, Levophed drip, Xarelto 15 mg at dinner, vancomycin 125 mg q.i.d. ALLERGIES: PENICILLIN, SULFA, TETANUS TOXIN. PHYSICAL EXAMINATION: VITAL SIGNS: Temperature is 36.6, pulse rate 109, respiratory rate 13, blood pressure 109/64, bedside pulse oximetry 97%. LABORATORY DATA: Hematology: White blood cell count 18.1, hemoglobin 12.2, hematocrit 36.1, MCV 95.5, platelet count 190,000. INR 1.17. Urinalysis, 1+ blood, moderate RBCs, 1+ glucose. Chemistry: Sodium 140, potassium 3.3, chloride 106, carbon dioxide 20, BUN 41, creatinine 1.8, GFR 37, glucose 117. Hemoglobin A1c 7.8. Lactic acid 1.8, calcium 7.5, phosphorus 2.5, magnesium 1.9, total bilirubin 1.1, AST 78, ALT 64, alkaline phosphatase 91. C-reactive protein 172. BNP 5510, total protein 5.6, albumin 2.9, lipase 59. C. difficile [address] [address] CONSULTATION Name: NAI CLAY Room #: 244-P ADM IN M.R.#: [id number] Admission: 10/12/20 Attend Phys: Mariam Camejo Discharge: Date of : 41 Report #: [id number]. IMAGING STUDIES: CT scan of the head demonstrates it is unremarkable. NEUROLOGIC: Cranial nerves 2-12 are grossly intact. Extraocular movements in all directions were unremarkable for double vision or unremarkable for cranial nerve palsy. There was no reported double vision. Motor exam demonstrates symmetrical strength in all 4 extremities. The patient is able to raise his arms above his head and lift each leg a few inches off the bed. Reflexes are trace throughout. Plantar responses are flexor. Coordination reveals some tremor with noyrez-li-zwoj, but no dysmetria. Gait cannot be tested in the ICU. IMPRESSION: This patient has reported double vision. He does have a history of diabetes and sometimes cranial nerve palsies can occur. I am going to order an MRI of the head for Thursday. This will be done without contrast. I would also recommend antibodies for myasthenia gravis either as an inpatient or outpatient. Dr. Quinones or one of the other neurologists communications programmer will be seeing the patient as of Thursday morning. I thank you for your kind referral of the patient, order an MRI of the head as well. <ELECTRONICALLY SIGNED> By: Irasema Herrera DO 10/19/20 1102 1029 1105 Irasema Herrera DO /nt
--- NOTE | 2020-10-19 12:36 | NUR ---
chart review. discussed during los, dc home today with . no needs. dcp home
[2020-10-19] MEDS ORDERED: VANCOMYCIN HCL250 MG PO (12:39)
[2020-10-19 12:54] VITALS: BP 126/93
--- NOTE | 2020-10-19 13:03 | NUR ---
PATIENT DISCHARGED AT 1300. MIDLINE REMOVED. PATIENT EDUCATED ON VANCO DOSING AND GIVEN PRESCRIPTION. PATIENT EDUCATED WITH DISCHARGE PACKET AND FOLLOW-UP VISIT. ESCORTED OUTSIDE TO [facility].
== END 2020-10-19 13:10 | disposition home or self-care (01) | DRG 871 ==
LOC: ER 17:28 → EROBS 20:00 → ICU 20:00
PROVIDERS: Emergency Medicine; Family Medicine; Internal Medicine; Nurse Practitioner Family; Specialist; ADMIT Hospitalist; ATTEND Hospitalist
PROC: 02H633Z Insertion of Infusion Device into Right Atrium, Percutaneous Approach (ICD-10-PCS; principal; 2020-10-13)
DX: A41.9 Sepsis, unspecified organism (principal); E11.10 Type 2 diabetes mellitus with ketoacidosis without coma; R65.21 Severe sepsis with septic shock; N17.9 Acute kidney failure, unspecified; A04.72 Enterocolitis due to Clostridium difficile, not specified as recurrent; E46 Unspecified protein-calorie malnutrition; G93.40 Encephalopathy, unspecified; M31.9 Necrotizing vasculopathy, unspecified; I48.21 Permanent atrial fibrillation; E87.2 Acidosis; Z20.822 Contact with and (suspected) exposure to COVID-19; E78.5 Hyperlipidemia, unspecified; I25.10 Atherosclerotic heart disease of native coronary artery without angina pectoris; H53.2 Diplopia; I95.89 Other hypotension; K52.9 Noninfective gastroenteritis and colitis, unspecified; N18.2 Chronic kidney disease, stage 2 (mild); E11.22 Type 2 diabetes mellitus with diabetic chronic kidney disease; I12.9 Hypertensive chronic kidney disease with stage 1 through stage 4 chronic kidney disease, or unspecified chronic kidney disease; E83.42 Hypomagnesemia; E87.6 Hypokalemia; Z95.1 Presence of aortocoronary bypass graft; Z95.5 Presence of coronary angioplasty implant and graft; Z79.4 Long term (current) use of insulin; Z87.442 Personal history of urinary calculi; Z88.0 Allergy status to penicillin; Z88.2 Allergy status to sulfonamides; Z88.7 Allergy status to serum and vaccine; Z87.891 Personal history of nicotine dependence; I25.2 Old myocardial infarction; Z79.01 Long term (current) use of anticoagulants
CPT/HCPCS: 10078; 10203; 27000; 50455; 65040

== ENCOUNTER 2020-11-30 23:33 | Inpatient (IN) | payer OTHER ==
[~2020-11-30] VITALS: Ht 182.9 cm; Wt 62.6 kg
[~2020-11-30 23:33] MED LIST changes: +BASAGLAR K100 UNIT/1 SUBQ; +CELEXA20 MG PO; +FUROSEMIDE 20 M20 MG PO; +HUMALOG100 UNIT/1 SUBQ; +MIDAMOR 5MG TABL5 M1 PO; +NAPROSYN500 M1 PO; +NEURONTIN100 MG PO; +SILDENAFIL CIT100 MG PO; +VANCOMYCIN HCL250 MG PO
[2020-11-30 23:48] VITALS: BP 130/72
[2020-11-30 23:59] LABS: ABSOLUTE NEUTROPHILS 17.5 thou/uL (1.4-8.2); BASOPHILS 0.4 % (0.0-2.0); EOSINOPHILS 0.2 % (0.0-3.0); HEMATOCRIT 39.6 % (42.0-52.0); HEMOGLOBIN 13.2 gm/dL (14.0-18.0); MCH 31.4 pg (26.0-34.0); MCHC 33.3 g/dL (28.0-37.0); MCV 94.3 fL (80.0-100.0); MONOCYTES 5.6 % (1.0-8.0); PLATELET COUNT 309 thou/uL (150-400); POLYS 87.8 % (36.0-66.0); WBC 19.9 thou/uL (4.0-11.0)
[2020-12-01] VITALS (10 sets, daily range): BP systolic 110–140; BP diastolic 54–74
[2020-12-01] MEDS ORDERED: ATENOLOL 25 MG25 M1 PO
[2020-12-01] MEDS ORDERED: DILT-XR180 MG PO
[2020-12-01] MEDS ORDERED: FUROSEMIDE 20 M20 M1 PO (00:01)
[2020-12-01 00:03] LABS: ANION GAP 12 mmol/L (7-16); BUN 39 mg/dL (7-18); CALCIUM 9.3 mg/dL (8.5-10.1); CHLORIDE 98 mmol/L (98-107); CO2 24 mmol/L (21-32); CREATININE 1.5 mg/dL (0.7-1.3); GLUCOSE 157 mg/dL (74-106); POTASSIUM 4.2 mmol/L (3.5-5.1); SODIUM 134 mmol/L (136-145)
[2020-12-01 00:17] LABS: ALBUMIN 3.6 g/dL (3.4-5.0); LIPASE 195 U/L (73-393); SGOT 22 U/L (15-37); SGPT 30 U/L (30-65); TOTAL PROTEIN 7.7 g/dL (6.4-8.2); TROPONIN-I <0.06 ng/mL (<0.06)
[2020-12-01 01:03] LABS: URINE BILIRUBIN NEGATIVE (Negative); URINE BLOOD 1+ (Negative); URINE CLARITY CLEAR; URINE COLOR YELLOW; URINE GLUCOSE-RANDOM* NEGATIVE (Negative); URINE KETONES 1+ (Negative); URINE PROTEIN (DIPSTICK) TRACE (Negative); URINE UROBILINOGEN 0.2 E.U./dl (0.2-1.0)
[2020-12-01 01:07] LABS: URINE LEUKOCYTES-REFLEX 2+ (Negative); URINE NITRITE-REFLEX POSITIVE (Negative)
[2020-12-01 01:11] LABS: BACTERIA-REFLEX >30 Many /HPF (None Seen); CRYSTALS None Seen /LPF (None Seen); HYALINE CASTS 0-3 Few /LPF (None Seen); MUCUS 0-3 Light strn/LPF (None Seen); SQUAMOUS 0-3 Few /LPF (0-3); TRANSITIONAL EPITHEL CELL 0-3 Few /LPF (None Seen); URINE WBC-REFLEX >25 Many /HPF (0-5); WBC CLUMPS Few (None Seen)
--- NOTE | 2020-12-01 05:31 | NUR ---
pt admitted to room 207, alert and oriented, denies pain or sob, admission assessment, hx and education completed, meds given as per sep, pt is afib, hr in the the low 100s, no needs at this time, pt is sleeping, will continue to monitor and follow poc
--- NOTE | 2020-12-01 13:12 | EKG ---
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
--- NOTE | 2020-12-01 20:17 | NUR ---
PT CARE ASSUMED AT 0700. ASSESSMENTS CHARTED. MEDICATIONS CHARTED. RFA IV. LFA IV. ATRIAL FIBRILLATION. ACHS; DIET CARB CONTROL. UP AD SANDY. ISOLATION FOR C. DIFFICILE. UTI.
[2020-12-02] VITALS (9 sets, daily range): BP systolic 104–133; BP diastolic 45–63
--- NOTE | 2020-12-02 03:10 | NUR ---
pt is alert and oriented x4. In isolation for c-diff. He reports tired of it and its second time in hosptal for this. On room air , lungs are clear. a fib on the cardiac monior . Voids in urinal at bedside. denies any complaints of pain at this time. call light within reach if needs assisstance. mar at bedside if pt needsl
--- NOTE | 2020-12-02 05:37 | HC ---
[facility] [place] [address] CONSULTATION Name: NAI CLAY Room #: 207-P [facility] IN M.R.#: [id number] Admission: 12/01/20 Attend Phys: Tico Bennett MD Discharge: Date of : 41 Report #: [id number] THIS REPORT FOR: cc: Albert Canada,Dequan Moss MD ~ DOC #: [id number] Dequan Castrejon MD DATE OF SERVICE: 12/01/2020 INFECTIOUS DISEASE CONSULTATION ATTENDING PHYSICIAN: Dr. Bennett. 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 HISTORY OF PRESENT ILLNESS: The patient examined. This is a 74-year-old ____ who was admitted first part of October, appearance of septic shock. He has got extensive medical history. He was ultimately diagnosed with C. diff colitis, had been discharged on p.o. vancomycin, has not been seen in followup. Although was scheduled apparently was doing fairly well. He denied any particular complaints; however, developed fairly abrupt onset of generalized abdominal pain while at the grocery store yesterday. He notes he did have regular stools and then developed some looseness. He is not aware of any fevers. He has had some adequate p.o. intake, although some mild weight loss. Denies any pulmonary-related complaints. Thus far, the evaluation noted. White count elevation 19.9, although he is only borderline anemic. Lactic acid 0.9. Creatinine 1.5. Urinalysis did show marked pyuria of greater than 25 white cells and bacteria with greater than 30. Reportedly had a CT that showed findings colitis, although it is not available to me. Empirically started on therapy with Cipro and Flagyl and this was switched to cefepime. ALLERGIES: PENICILLIN, SULFA, TETANUS TOXOID. CURRENT MEDICATIONS: Include atorvastatin, rivaroxaban, ciprofloxacin, citalopram, diltiazem, metronidazole, cefepime, pantoprazole, ipratropium, albuterol inhaler. PAST MEDICAL HISTORY: As described above. No known history of C. diff colitis, diabetes mellitus, has been complicated by vasculopathy, has known coronary artery disease with previous aortocoronary bypass grafting and stenting, renal lithiasis with lithotripsies, hypertension, atrial fibrillation, hyperlipidemia. SOCIAL HISTORY: Former smoker, no ethanol. [address] [address] CONSULTATION Name: NAI CLAY Room #: 207-P [facility] IN [facility].#: [id number] Admission: 12/01/20 Attend Phys: Tico Bennett MD Discharge: Date of : 41 Report #: [id number] FAMILY HISTORY: Noncontributory. REVIEW OF SYSTEMS: Otherwise, unremarkable. 10-point review of systems. PHYSICAL EXAMINATION: GENERAL: Appears somewhat chronically ill, pleasant, cooperative. He is not overtly distressed or toxic appearing. VITAL SIGNS: Temperature 98.5, pulse 129, respirations 20, blood pressure 140/64. SKIN: Warm, dry, no rashes. HEENT: Normocephalic. Extraocular muscles intact. NECK: Supple, maintained on room air. LUNGS: Fairly clear to auscultation. HEART: Regular, tachycardic. I do not appreciate a murmur. ABDOMEN: Not percussible tender. There is no peritoneal signs. GENITOURINARY AND RECTAL: Deferred. LABORATORY DATA: Urinalysis described above. Electrolytes: Sodium 134, potassium 4.2, chloride 98, bicarbonate 24, anion gap of 12, BUN and creatinine 39 and 1.5, glucose of 157. AST of 22, ALT of 30, albumin 36. Total protein 7.6. Lactic acid 0.9. CBC: White count 19.9, H and H 13.2 and 39.6, platelets of 309. 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 We will adjust therapy. We will initiate p.o. vancomycin. Check C. diff studies. Secondly, we will continue cefepime likely genitourinary tract infection. Again he is not hemodynamically stable otherwise toxic appearing. Ideally, we able to reverse the progression of the illness. We will add incentive spirometry. He remains somewhat tenuous overall. MD VERONICA Rinaldi/DANDRE/AIME <ELECTRONICALLY SIGNED> By: Dequan Castrejon MD 12/02/20 0537 0546 36 Dequan Castrejon MD /nt
--- NOTE | 2020-12-02 16:50 | NUR ---
PT CARE ASSUMED AT 0700. ASSESSMENTS CHARTED. MEDICATIONS CHARTED. RFA IV. LFA IV. ATRIAL FIBRILLATION. TOILET. ACHS: CARB CONTROL DIET. ISOLATION; CLOSTRIDIUM DIFICILLE. UTI.
[2020-12-03] VITALS (7 sets, daily range): BP systolic 121–129; BP diastolic 53–60
[2020-12-03 04:38] LABS: HEMOGLOBIN 11.3 gm/dL (14.0-18.0); MCH 32.2 pg (26.0-34.0); MCHC 34.1 g/dL (28.0-37.0); MCV 94.2 fL (80.0-100.0); RBC 3.5 mil/uL (4.50-6.00); RDW 13.5 % (10.5-14.5); WBC 7.7 thou/uL (4.0-11.0)
[2020-12-03 05:00] LABS: CALCIUM 8.3 mg/dL (8.5-10.1); POTASSIUM 3.1 mmol/L (3.5-5.1)
--- NOTE | 2020-12-03 07:28 | NUR ---
STOOL IS SOFT NOT LIQUIDY.UP INDEPENDENTLY TO THE BATHROOM.DENIES ANY PAIN.MONITOR SHOWS AFIB.POC CONTINUED.
--- NOTE | 2020-12-03 18:30 | NUR ---
PT CARE ASSUMED AT 0700. ASSESSMENTS CHARTED. MEDICATIONS CHARTED. RFA IV. LFA IV. ATRIAL FIBRILLATION. TOILET. UP AD SANDY. ACHS; CARB CONTROL DIET. ISOLATION FOR CLOSTRIDIUM DIFICILLE.
[2020-12-04 05:00] VITALS: BP 123/64
--- NOTE | 2020-12-04 06:41 | NUR ---
PATIENT HOPING TO GO HOME TODAY;PT WANTS HIS ANTIBIOTIC MED FILL HERE IF EVER DISCHARGE TODAY.MONITOR SHOWS AFIB.POC CONTINUED.
[2020-12-04] MEDS ORDERED: DIGOXIN250 MCG PO (08:33)
[2020-12-04] MEDS ORDERED: CARDIZEM CD240 M1 PO (08:33)
[2020-12-04 08:59] VITALS: BP 126/59
[2020-12-04] MEDS ORDERED: FIRVANQ50 MG/1 ML PO (11:11)
[2020-12-04 13:08] VITALS: BP 126/59
--- NOTE | 2020-12-04 13:36 | NUR ---
DISCHARGED HOME IN STABLE CONDITION WITH 3 NEW PRESCRIPTIONS. AFIB CONTROLLED. NO PAIN OR NAUSEA.
== END 2020-12-04 13:46 | disposition home or self-care (01) | DRG 871 ==
LOC: ER 23:33 → 2N 12-01 01:21 → EROBS 12-01 01:21 → 2N 12-01 03:05
PROVIDERS: Emergency Medicine; ADMIT Internal Medicine; ATTEND Internal Medicine
DX: A41.9 Sepsis, unspecified organism (principal); N17.0 Acute kidney failure with tubular necrosis; I48.20 Chronic atrial fibrillation, unspecified; A04.72 Enterocolitis due to Clostridium difficile, not specified as recurrent; N30.01 Acute cystitis with hematuria; I48.92 Unspecified atrial flutter; M31.9 Necrotizing vasculopathy, unspecified; E46 Unspecified protein-calorie malnutrition; Z68.1 Body mass index [BMI] 19.9 or less, adult; I10 Essential (primary) hypertension; E78.5 Hyperlipidemia, unspecified; K52.9 Noninfective gastroenteritis and colitis, unspecified; I25.10 Atherosclerotic heart disease of native coronary artery without angina pectoris; E11.42 Type 2 diabetes mellitus with diabetic polyneuropathy; E11.69 Type 2 diabetes mellitus with other specified complication; R44.1 Visual hallucinations; B96.1 Klebsiella pneumoniae [K. pneumoniae] as the cause of diseases classified elsewhere; Z79.01 Long term (current) use of anticoagulants; Z95.1 Presence of aortocoronary bypass graft; Z95.5 Presence of coronary angioplasty implant and graft; Z79.4 Long term (current) use of insulin; Z87.442 Personal history of urinary calculi; I25.2 Old myocardial infarction; Z88.0 Allergy status to penicillin; Z88.2 Allergy status to sulfonamides; Z88.8 Allergy status to other drugs, medicaments and biological substances; Z98.42 Cataract extraction status, left eye; Z98.41 Cataract extraction status, right eye; Z90.49 Acquired absence of other specified parts of digestive tract; Z82.49 Family history of ischemic heart disease and other diseases of the circulatory system; Z87.891 Personal history of nicotine dependence
CPT/HCPCS: 10081

== ENCOUNTER 2020-12-15 17:19 | Inpatient (IN) | payer OTHER ==
[~2020-12-15] VITALS: Ht 182.9 cm; Wt 64.9 kg
[~2020-12-15 17:19] MED LIST changes: +CARDIZEM CD240 M1 PO; +DIGOXIN250 MCG PO; +DILT-XR180 MG PO; +FIRVANQ50 MG/1 ML PO; +FUROSEMIDE 20 M20 M1 PO
[2020-12-15 17:22] VITALS: BP 109/45
[2020-12-15 18:03] LABS: ABSOLUTE NEUTROPHILS 13.3 thou/uL (1.4-8.2); BASOPHILS 0.4 % (0.0-2.0); EOSINOPHILS 0.8 % (0.0-3.0); HEMATOCRIT 38.5 % (42.0-52.0); HEMOGLOBIN 12.6 gm/dL (14.0-18.0); LYMPHOCYTES 6.7 % (24.0-44.0); MCH 30.7 pg (26.0-34.0); MCHC 32.7 g/dL (28.0-37.0); MCV 93.9 fL (80.0-100.0); MONOCYTES 7.5 % (1.0-8.0); PLATELET COUNT 320 thou/uL (150-400); POLYS 84.6 % (36.0-66.0); RDW 13.7 % (10.5-14.5); WBC 15.7 thou/uL (4.0-11.0)
[2020-12-15 18:05] LABS: ANION GAP 6 mmol/L (7-16); BUN 28 mg/dL (7-18); CALCIUM 9.1 mg/dL (8.5-10.1); CHLORIDE 105 mmol/L (98-107); CO2 29 mmol/L (21-32); CREATININE 1.5 mg/dL (0.7-1.3); GLUCOSE 146 mg/dL (74-106); POTASSIUM 5.6 mmol/L (3.5-5.1); SODIUM 140 mmol/L (136-145)
[2020-12-15 18:16] LABS: APTT 29.4 Seconds (24.5-32.8); INR 1.36; PROTIME 14.6 Seconds (10.5-12.1)
[2020-12-15 18:27] LABS: ALBUMIN 3.5 g/dL (3.4-5.0); MAGNESIUM 1.7 mg/dL (1.8-2.4); SGOT 24 U/L (15-37); SGPT 37 U/L (16-63); TOTAL BILIRUBIN 0.6 mg/dL (0.2-1.0); TOTAL PROTEIN 7.2 g/dL (6.4-8.2); TROPONIN-I <0.06 ng/mL (<0.06)
[2020-12-15 18:30] LABS: DIGOXIN 2.9 ng/mL (0.9-2.0)
[2020-12-15 20:51] VITALS: BP 115/48
[2020-12-15 21:10] VITALS: BP 118/48
[2020-12-15 22:00] VITALS: BP 127/43
[2020-12-15] MEDS ORDERED: NAPROSYN500 M1 PO (23:36)
[2020-12-15] MEDS ORDERED: FUROSEMIDE 20 M20 MG PO (23:37)
[2020-12-15] MEDS ORDERED: AMILORIDE HCL-1 EACH PO (23:39)
[2020-12-15] MEDS ORDERED: ATENOLOL 25 MG25 M1 PO (23:40)
[2020-12-15] MEDS ORDERED: ADVIL PM CAPLE1 EACH PO (23:41)
[2020-12-16] VITALS: BP 114/51
--- NOTE | 2020-12-16 00:53 | NUR ---
PATIENT ARRIVED FROM ED AROUND 2129. PATIENT SETTLED INTO BED, ADMITTED INTO COMPUTER SYSTEM. PATIENT HAD JUST BEEN HERE 2 WEEKS AGO. ASSESSMENTS CHARTED, MEDS CHARTED GIVEN. PATIENT IS UP AT SANDY IN ROOM. ON MAINTENANCE FLUIDS. FALL PRECAUTIONS IN PLACE DURING SHIFT.
[2020-12-16 03:55] VITALS: BP 119/44
[2020-12-16 07:20] VITALS: BP 125/51
[2020-12-16 08:02] LABS: HEMATOCRIT 35.4 % (42.0-52.0); HEMOGLOBIN 11.7 gm/dL (14.0-18.0); MCHC 32.9 g/dL (28.0-37.0); MCV 94.2 fL (80.0-100.0); RBC 3.76 mil/uL (4.50-6.00); RDW 13.6 % (10.5-14.5); WBC 7.6 thou/uL (4.0-11.0)
[2020-12-16 08:19] LABS: CALCIUM 8.5 mg/dL (8.5-10.1); CREATININE 1.1 mg/dL (0.7-1.3); POTASSIUM 4.7 mmol/L (3.5-5.1); TOTAL BILIRUBIN 0.6 mg/dL (0.2-1.0); TOTAL PROTEIN 6.1 g/dL (6.4-8.2)
[2020-12-16 16:00] VITALS: BP 126/51
--- NOTE | 2020-12-16 16:20 | NUR ---
PT ALERT AND ORIENTED TIMES FOUR. VSS, SB ON TELE, IVF INFUSING PER ORDER. PT DENIES PAIN/SOA. PT UP TO RESTROOM WITH STANDBY ASSIT. PT TOLERATES MEDS AND MEALS. PT FAMILY AT BEDSIDE THIS AFTERNOON. PLANS FOR POSSIBLE DISCHARGE TOMORROW.
[2020-12-16 19:51] VITALS: BP 139/74
--- NOTE | 2020-12-17 00:44 | NUR ---
ASSESSMENTS CHARTED, MEDS CHARTED GIVEN. PATIENT RESTING IN BED DURING SHIFT. UP AT SANDY IN ROOM DURING SHIFT. GOT ANTIBIOTIC RESTARTED FROM LAST ADMISSION DISCHARGE ORDERS. ON MAINTENANCE FLUIDS DURING SHIFT. PLAN OF CARE IS TO GO HOME IN THE MORNING, SEEING CARDIOLOGY OUTPATIENT NEEDED. FALL PRECAUTIONS IN PLACE DURING SHIFT.
[2020-12-17 04:03] VITALS: BP 127/70
--- NOTE | 2020-12-17 07:21 | EKG ---
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 : 1945 Requested By: Dequan Rutherford Order Number: [id number] MD: Dez Akins Measurements Intervals [place] Rate: 53 P: [place]: QRS: 52 QRSD: 86 T: QT: 437 QTc: 411 Interpretive Statements Atrial fibrillation Low voltage, extremity leads Nonspecific repol abnormality, diffuse leads Compared to ECG 11/30/2020 23:53:19 Early repolarization now present Electronically Signed On 12-17-2020 7:21:26 CDT by Dez Akins [email or web address] <ELECTRONICALLY SIGNED> By: Dez Akins MD, [facility] 12/17/20 0721 1723 22 Dez Akins MD, FAC /EPI
--- NOTE | 2020-12-17 07:22 | EKG ---
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: : 1945 Requested By: Victor Manuel Salinas Order Number: [id number] MD: Dez Akins Measurements Intervals [place] Rate: 68 P: [place]: QRS: 60 QRSD: 83 T: 254 QT: 340 QTc: 362 Interpretive Statements Atrial fibrillation Low voltage, extremity leads Repol abnrm suggests ischemia, diffuse leads Compared to ECG 12/15/2020 17:23:13 Possible ischemia now present Electronically Signed On 12-17-2020 7:21:48 CDT by Dez Akins [email or web address] <ELECTRONICALLY SIGNED> By: Dez Akins MD, [facility] 12/17/20 0721 05 05 Dez Akins MD, FACC /EPI
--- NOTE | 2020-12-17 07:22 | EKG ---
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: : 1945 Requested By: Phong Jordan Order Number: [id number] : Dez Akins Measurements Intervals [place] Rate: 64 P: MA: QRS: 60 QRSD: 77 T: 245 QT: 343 QTc: 354 Interpretive Statements Atrial fibrillation Borderline low voltage, extremity leads Repol abnrm suggests ischemia, diffuse leads Compared to ECG 12/15/2020 17:23:13 Possible ischemia now present Electronically Signed On 12-17-2020 7:21:45 CDT by Dez Akins [email or web address] <ELECTRONICALLY SIGNED> By: Dez Akins MD, [facility] 12/17/20720 04 04 Dez Akins MD, FACC /EPI
[2020-12-17 07:46] VITALS: BP 140/74
[2020-12-17] MEDS ORDERED: CARDIZEM CD120 MG PO (09:18)
[2020-12-17] MEDS ORDERED: FIRVANQ50 MG/1 ML PO (10:49)
[2020-12-17 11:40] VITALS: BP 136/64
[2020-12-17 12:04] VITALS: BP 136/64
--- NOTE | 2020-12-17 13:44 | NUR ---
ASSESSMENT CHARTED - MEDS PER SEP - NO CO'S OF PAIN OR NAUSEA. UP AD SANDY IN ROOM. ACCUCHECKS CHARTED - PT [place]OME THIS AFTERNOON. INSTURCTION RE HOME MEDS/ CARE AND FOLLOW UP GIVEN - STATED UNDERSTANDING OF INSTRUCTION GIVEN. NO CO'S AAT TIME OF D/C. HOME VIA PVT VEHICLE - ACCOMAPANIED BUY FAMILY.
== END 2020-12-17 13:45 | disposition home or self-care (01) | DRG 391 ==
LOC: ER 17:19 → EROBS 19:43 → 2N 19:43
PROVIDERS: Emergency Medicine; ADMIT Hospitalist; ATTEND Hospitalist
DX: K21.9 Gastro-esophageal reflux disease without esophagitis (principal); N17.0 Acute kidney failure with tubular necrosis; I25.10 Atherosclerotic heart disease of native coronary artery without angina pectoris; I48.91 Unspecified atrial fibrillation; I10 Essential (primary) hypertension; D72.829 Elevated white blood cell count, unspecified; E78.5 Hyperlipidemia, unspecified; F32.9 Major depressive disorder, single episode, unspecified; E87.5 Hyperkalemia; E11.42 Type 2 diabetes mellitus with diabetic polyneuropathy; R00.1 Bradycardia, unspecified; Z79.01 Long term (current) use of anticoagulants; Z95.1 Presence of aortocoronary bypass graft; Z95.5 Presence of coronary angioplasty implant and graft; Z79.4 Long term (current) use of insulin; Z79.899 Other long term (current) drug therapy; Z88.2 Allergy status to sulfonamides; Z88.0 Allergy status to penicillin; Z88.7 Allergy status to serum and vaccine; I25.2 Old myocardial infarction; Z90.49 Acquired absence of other specified parts of digestive tract; Z98.42 Cataract extraction status, left eye; Z98.41 Cataract extraction status, right eye; Z87.891 Personal history of nicotine dependence; T46.0X5A Adverse effect of cardiac-stimulant glycosides and drugs of similar action, initial encounter
CPT/HCPCS: 10081

== ENCOUNTER → 2021-01-15 | Outpatient (CLI) | payer OTHER ==
[~2021-01-15] MED LIST changes: +ADVIL PM CAPLE1 EACH PO; +CARDIZEM CD120 MG PO; +COZAAR 25 MG TA25 M2 PO; +DIGITEK250 MC2 PO
== END ==
LOC: SJCVC 13:12
PROVIDERS: ATTEND Internal Medicine Cardiovascular Disease
DX: R94.31 Abnormal electrocardiogram [ECG] [EKG] (principal); I49.5 Sick sinus syndrome; I48.21 Permanent atrial fibrillation; I25.10 Atherosclerotic heart disease of native coronary artery without angina pectoris; E78.5 Hyperlipidemia, unspecified; E11.9 Type 2 diabetes mellitus without complications; I10 Essential (primary) hypertension; Z95.1 Presence of aortocoronary bypass graft; Z88.0 Allergy status to penicillin; Z88.2 Allergy status to sulfonamides; Z79.4 Long term (current) use of insulin; Z79.899 Other long term (current) drug therapy; Z87.891 Personal history of nicotine dependence

== ENCOUNTER 2021-01-24 09:35 | Observation (INO) | payer OTHER ==
[~2021-01-24] VITALS: Ht 182.9 cm; Wt 62.6 kg
[2021-01-24] VITALS (9 sets, daily range): BP systolic 124–153; BP diastolic 55–68
--- NOTE | ~2021-01-24 | P ---
[facility] [place] [address] PROCEDURE REPORT Name: NAI CLAY Room #: [facility] Nicky Dominguez#: [id number] Admission: 01/24/21 Attend Phys: Julito Llamas MD Discharge: 01/25/21 Date of : 43 Report #: [id number] THIS REPORT FOR: cc: Albert Canada Steven F. DO Couchonnal, Luis F. MD ~ PREOPERATIVE DIAGNOSES: 1. Atrial fibrillation. 2. Symptomatic bradycardia. 3. Tachycardia-bradycardia syndrome. PROCEDURE PERFORMED: VVI pacemaker implantation. HISTORY: The patient is a 75-year-old with a history of permanent atrial fibrillation who has had recurrent admissions for both AFib with RVR and AFib with symptomatic bradycardia. He is here for pacemaker implantation. ANESTHESIA: The patient underwent MAC anesthesia with no anesthesia related complications. DESCRIPTION OF PROCEDURE: The patient underwent informed consent. We discussed the details of the procedure including the risks, which include but not limited to bleeding, infection, vascular damage, cardiac perforation, pneumothorax. He understood these risks and is willing to proceed. The patient was brought to the EP laboratory in fasting and sedated state, prepped and draped in a sterile fashion and received IV antibiotics and a venogram was performed. Next, I injected lidocaine at the prior incision site. Incision was made, pocket created over the prepectoral fascia and access was obtained once in the left axillary vein using the extrathoracic approach. Sheaths positioned using the modified Seldinger technique. Next, under fluoroscopy leads were positioned into the right ventricle with adequate pacing and sensing thresholds. This lead was sutured to prepectoral fascia, it is connected to the device. Tug test performed. Pocket was irrigated with vancomycin and pocket closed in 2 layers. Surgical glue was placed to outer skin layer. The patient awoke neurologically and hemodynamically intact. No complications. No significant bleeding. The implanted pacemaker was Medtronic model number W3SR01, serial number [id number]. The lead was a 5076, 58 cm, serial number [id number]. Lead demonstrated R wave of 12.6 millivolts, pacing impedance of 926 ohms, pacing threshold 0.5 volts at 0.4 milliseconds. The device was programmed VVIR 60-130 mode. CONCLUSIONS: [facility] [address] [place] [address] PROCEDURE REPORT Name: NAI CLAY Room #: 210-P [facility] Nicky Dominguez#: [id number] Admission: 01/24/21 Attend Phys: Julito Llamas MD Discharge: 01/25/21 Date of : 41 Report #: [id number] 1. Successful pacemaker implantation. 2. Satisfactory ventricular pacing and sensing thresholds. By: 0938 43 Julito Llamas MD /nt
[~2021-01-24 09:35] MED LIST changes: -COZAAR 25 MG TA25 M2 PO; -DIGITEK250 MC2 PO
[2021-01-24 11:14] LABS: ABSOLUTE NEUTROPHILS 4.3 thou/uL (1.4-8.2); BASOPHILS 0.3 % (0.0-2.0); EOSINOPHILS 1.6 % (0.0-3.0); HEMATOCRIT 39.1 % (42.0-52.0); LYMPHOCYTES 19.5 % (24.0-44.0); MCH 30.6 pg (26.0-34.0); MCHC 33.2 g/dL (28.0-37.0); MCV 92.4 fL (80.0-100.0); MONOCYTES 13.3 % (1.0-8.0); PLATELET COUNT 222 thou/uL (150-400); POLYS 65.3 % (36.0-66.0); RBC 4.23 mil/uL (4.50-6.00); WBC 6.7 thou/uL (4.0-11.0)
[2021-01-24 11:19] LABS: CALCIUM 8.8 mg/dL (8.5-10.1); CREATININE 1.3 mg/dL (0.7-1.3); POTASSIUM 3.6 mmol/L (3.5-5.1)
[2021-01-24 11:24] LABS: APTT 26.8 Seconds (24.5-32.8); INR 1.06; PROTIME 11.5 Seconds (10.5-12.1)
[2021-01-24] MEDS ORDERED: DIGITEK250 MC2 PO (12:02)
[2021-01-24] MEDS ORDERED: COZAAR 25 MG TA25 M2 PO (12:03)
[2021-01-24] MEDS ORDERED: AMILORIDE HCL-1 EACH PO (12:04)
[2021-01-24] MEDS ORDERED: NAPROSYN500 M1 PO (12:05)
--- NOTE | 2021-01-24 18:54 | NUR ---
ADMITTED 75 YEAR OLD MALE PATIENT POST PACEMAKER INSERTION.ON ROOM AIR BREATHING SPONTANEOUSLY.NOT IN PAIN OR DISTRESS.ADMISSION COMPLETED.ALL NEEDS ATTENDED.
[2021-01-25 05:54] VITALS: BP 137/64
--- NOTE | 2021-01-25 06:17 | NUR ---
ASSUME CARE 1900. PT/VITALS STABLE. DENIES ANY PAIN. TOLERATES ACTIVITY WELL. VPACED ON MONITOR. ASSESSMENT CHARTED. PROGRESSING WELL WITH POC. NO DISTRESS NOTED. PACEMAKER SITE C/D/I, WITH NO BRUISING OR HEMATOMA NOTED. PLAN IS POSSIBLE DISCHARGE TODAY. WILL CONTINUE TO MONITOR AND FOLLOW WITH POC.
[2021-01-25] MEDS ORDERED: XARELTO20 MG PO (08:39)
[2021-01-25 09:10] VITALS: BP 168/76
[2021-01-25 11:52] VITALS: BP 168/76
--- NOTE | 2021-01-25 13:32 | NUR ---
RECEIVED THE PATIENT CONSCIOUS AND ORIENTED.ON ROOM AIR BREATHING SPONTANEOUSLY.NOT IN PAIN OR DISTRESS.WITH POST PACEMAKER SITE CLEAN, DRY INTACT.ALL NEEDS ATTENDED.DISCHARGE PACKET GIVEN AND EVERYTHING WAS EXPLAINED TO THE PATIENT.DISCHARGED PATIENT FROM THE HOSPITAL ON STABLE CONDITION.
== END 2021-01-25 12:25 | disposition home or self-care (01) ==
LOC: CATH 09:35 → 2N 16:15
PROVIDERS: ADMIT Internal Medicine Cardiovascular Disease; ATTEND Internal Medicine Cardiovascular Disease
DX: I49.5 Sick sinus syndrome (principal); I48.21 Permanent atrial fibrillation; I25.10 Atherosclerotic heart disease of native coronary artery without angina pectoris; I10 Essential (primary) hypertension; E78.5 Hyperlipidemia, unspecified; E11.9 Type 2 diabetes mellitus without complications; K52.9 Noninfective gastroenteritis and colitis, unspecified; Z88.0 Allergy status to penicillin; Z88.2 Allergy status to sulfonamides; Z88.8 Allergy status to other drugs, medicaments and biological substances; Z79.899 Other long term (current) drug therapy; Z79.4 Long term (current) use of insulin
CPT/HCPCS: 62110; 62900; 70005

== ENCOUNTER 2021-01-31 13:15 | Emergency (ER) | payer OTHER ==
[~2021-01-31] VITALS: Ht 182.9 cm; Wt 53.1 kg
[~2021-01-31 13:15] MED LIST changes: +COZAAR 25 MG TA25 M2 PO; +DIGITEK250 MC2 PO
[2021-01-31 13:56] LABS: ABSOLUTE NEUTROPHILS 4.1 thou/uL (1.4-8.2); BASOPHILS 0.5 % (0.0-2.0); EOSINOPHILS 2.4 % (0.0-3.0); HEMOGLOBIN 11.6 gm/dL (14.0-18.0); LYMPHOCYTES 17.2 % (24.0-44.0); MCH 30.9 pg (26.0-34.0); MCHC 33.9 g/dL (28.0-37.0); MONOCYTES 11.1 % (1.0-8.0); PLATELET COUNT 212 thou/uL (150-400); POLYS 68.8 % (36.0-66.0); RBC 3.74 mil/uL (4.50-6.00); RDW 14.9 % (10.5-14.5)
[2021-01-31 14:06] LABS: CALCIUM 8.6 mg/dL (8.5-10.1); CREATININE 1.3 mg/dL (0.7-1.3); POTASSIUM 3.5 mmol/L (3.5-5.1)
[2021-01-31 14:12] LABS: ALBUMIN 2.7 g/dL (3.4-5.0); DIRECT BILIRUBIN 0.1 mg/dL (<0.1-0.2); TOTAL BILIRUBIN 0.5 mg/dL (0.2-1.0); TOTAL PROTEIN 5.9 g/dL (6.4-8.2)
[2021-01-31 15:30] LABS: URINE BILIRUBIN NEGATIVE (Negative); URINE BLOOD NEGATIVE (Negative); URINE CLARITY CLEAR; URINE COLOR YELLOW; URINE GLUCOSE-RANDOM* NEGATIVE (Negative); URINE KETONES NEGATIVE (Negative); URINE LEUKOCYTES-REFLEX 1+ (Negative); URINE NITRITE-REFLEX POSITIVE (Negative); URINE PROTEIN (DIPSTICK) NEGATIVE (Negative); URINE UROBILINOGEN 0.2 E.U./dl (0.2-1.0)
[2021-01-31 15:56] LABS: BACTERIA-REFLEX >30 Many /HPF (None Seen); SQUAMOUS 4-10 Moderate /LPF (0-3); URINE RBC 1-2 Rare /HPF (NONE SEEN)
[2021-01-31] MEDS ORDERED: VANCOCIN 125 M125 M1 PO (16:42)
[2021-01-31] MEDS ORDERED: ONDANSETRON HCL4 M2 PO (16:44)
[2021-01-31 17:31] VITALS: BP 93/47
== END 2021-01-31 17:33 | disposition home or self-care (01) ==
LOC: ER 13:15
PROVIDERS: Nurse Practitioner
DX: R19.7 Diarrhea, unspecified (principal); I48.91 Unspecified atrial fibrillation; E78.5 Hyperlipidemia, unspecified; Z20.822 Contact with and (suspected) exposure to COVID-19; Z95.1 Presence of aortocoronary bypass graft; Z79.899 Other long term (current) drug therapy; Z79.1 Long term (current) use of non-steroidal anti-inflammatories (NSAID); Z79.4 Long term (current) use of insulin; Z88.0 Allergy status to penicillin; Z88.2 Allergy status to sulfonamides; Z88.7 Allergy status to serum and vaccine

== ENCOUNTER 2021-02-06 16:17 | Emergency (ER) | payer OTHER ==
[~2021-02-06] VITALS: Ht 182.9 cm; Wt 62.6 kg
[~2021-02-06 16:17] MED LIST changes: +ONDANSETRON HCL4 M2 PO; +VANCOCIN 125 M125 M1 PO
[2021-02-06 17:08] LABS: ABSOLUTE NEUTROPHILS 6.4 thou/uL (1.4-8.2); BASOPHILS 0.4 % (0.0-2.0); EOSINOPHILS 0.9 % (0.0-3.0); HEMATOCRIT 36.5 % (42.0-52.0); HEMOGLOBIN 12.2 gm/dL (14.0-18.0); LYMPHOCYTES 14.2 % (24.0-44.0); MCH 30.5 pg (26.0-34.0); MCHC 33.5 g/dL (28.0-37.0); MCV 91.2 fL (80.0-100.0); MONOCYTES 7.5 % (1.0-8.0); PLATELET COUNT 301 thou/uL (150-400); RDW 14.5 % (10.5-14.5); WBC 8.3 thou/uL (4.0-11.0)
[2021-02-06 17:16] LABS: CALCIUM 8.7 mg/dL (8.5-10.1); CREATININE 1.1 mg/dL (0.7-1.3); POTASSIUM 4.2 mmol/L (3.5-5.1)
[2021-02-06] MEDS ORDERED: ONDANSETRON HCL4 M2 PO (17:36)
[2021-02-06 17:40] VITALS: BP 127/53
== END 2021-02-06 17:40 | disposition home or self-care (01) ==
LOC: ER 16:17
PROVIDERS: Nurse Practitioner
DX: R11.2 Nausea with vomiting, unspecified (principal); E11.9 Type 2 diabetes mellitus without complications; I10 Essential (primary) hypertension; I48.91 Unspecified atrial fibrillation; E78.5 Hyperlipidemia, unspecified; Z98.890 Other specified postprocedural states; Z95.1 Presence of aortocoronary bypass graft; Z79.899 Other long term (current) drug therapy; Z79.4 Long term (current) use of insulin; Z79.1 Long term (current) use of non-steroidal anti-inflammatories (NSAID); Z88.0 Allergy status to penicillin; Z88.2 Allergy status to sulfonamides; Z88.7 Allergy status to serum and vaccine

== ENCOUNTER → 2021-04-17 | Outpatient (CLI) | payer OTHER | LOC: SJCVC 13:03 | PROVIDERS: ATTEND Internal Medicine Cardiovascular Disease | DX: R94.31 Abnormal electrocardiogram [ECG] [EKG] (principal); I44.2 Atrioventricular block, complete; I48.0 Paroxysmal atrial fibrillation; I25.10 Atherosclerotic heart disease of native coronary artery without angina pectoris; E11.9 Type 2 diabetes mellitus without complications; E78.5 Hyperlipidemia, unspecified; I10 Essential (primary) hypertension; Z95.0 Presence of cardiac pacemaker; Z79.84 Long term (current) use of oral hypoglycemic drugs; Z79.899 Other long term (current) drug therapy; Z88.0 Allergy status to penicillin; Z88.2 Allergy status to sulfonamides; Z88.8 Allergy status to other drugs, medicaments and biological substances; Z87.891 Personal history of nicotine dependence ==

== ENCOUNTER → 2021-04-25 | Outpatient (CLI) | payer OTHER | LOC: SJCVCIMAG 14:27 | PROVIDERS: ATTEND Internal Medicine Cardiovascular Disease | DX: I08.8 Other rheumatic multiple valve diseases (principal); I25.10 Atherosclerotic heart disease of native coronary artery without angina pectoris; E78.00 Pure hypercholesterolemia, unspecified; I49.5 Sick sinus syndrome; D68.59 Other primary thrombophilia; I48.21 Permanent atrial fibrillation; E11.9 Type 2 diabetes mellitus without complications; I50.32 Chronic diastolic (congestive) heart failure; I11.0 Hypertensive heart disease with heart failure; E78.5 Hyperlipidemia, unspecified; Z95.1 Presence of aortocoronary bypass graft; Z88.2 Allergy status to sulfonamides; Z88.0 Allergy status to penicillin; Z88.8 Allergy status to other drugs, medicaments and biological substances; Z87.891 Personal history of nicotine dependence; Z79.899 Other long term (current) drug therapy; Z79.84 Long term (current) use of oral hypoglycemic drugs; Z95.0 Presence of cardiac pacemaker ==